=== PATIENT | female | born 1985 | race Caucasian/White ===

== ENCOUNTER 2019-04-06 05:50 | Outpatient (CLI) | payer OTHER ==
[~2019-04-06] VITALS: Ht 175.3 cm; Wt 156.8 kg
[2019-04-06 06:15] LABS: HEMATOCRIT 40.6 % (36.0-48.0); HEMOGLOBIN 13.5 g/dL (12-16); MCH 29.9 pg (26.0-34.0); MCHC 33.3 g/dL (31.0-37.0); MEAN PLATELET VOLUME 9.5 fL (7.4-10.4); RBC 4.51 10x6/uL (4.00-5.40); RDW 12.8 % (11.5-14.5); WBC 6.3 10x3/uL (4.8-10.8)
[2019-04-06] MEDS ORDERED: ZOLOFT50 MG PO (06:41)
[2019-04-06] MEDS ORDERED: PEPCID40 MG PO (06:41)
[2019-04-06] MEDS ORDERED: ATIVAN1 MG PO (06:42)
[2019-04-06] MEDS ORDERED: BUTALB-APAP-CA1 EACH PO (06:42)
[2019-04-06] MEDS ORDERED: ZYRTEC10 MG PO (06:42)
[2019-04-06] MEDS ORDERED: IMITREX50 MG PO (06:43)
[2019-04-06 06:55] VITALS: BP 137/88; Ht 175.3 cm; Wt 156.8 kg
[2019-04-06 07:04] LABS: HCG URINE NEGATIVE (NEGATIVE)
--- NOTE | 2019-04-06 09:27 | NUR ---
[id number] ESOPHAGEAL MANOMETRY AT THIS TIME
--- NOTE | 2019-04-06 10:08 | NUR ---
0937 PT WAS IN GI LAB SEVERAL MINUTES AFTER COMPLETION OF EGD TO HAVE MANOMETRY TESTING DONE. PT VOICED DESIRED TO GO HOME SAN[facility]. 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 PT AGREEABLE TO PLAN. 0955 SECOND SET OF VS STABLE. PT SAID THE THROAT DISCOMFORT SHE HAD EARLIER IS NOW GONE. RATES PAIN LEVEL A 0 OUT OF 10. 0956 IV DC'D. CATHETER TIP INTACT. NO BLEEDING OR SWELLING AT SITE AFTER HOLDING PRESSURE. BANDAID APPLIED.
== END 2019-04-06 10:05 | disposition home or self-care (01) ==
LOC: D.OPS 05:50
PROVIDERS: Anesthesiology; ATTEND Surgery
DX: K21.9 Gastro-esophageal reflux disease without esophagitis (principal); E66.01 Morbid (severe) obesity due to excess calories; Z68.43 Body mass index [BMI] 50.0-59.9, adult